=== PATIENT | male | born 1965 | race Hispanic/Latino ===

== ENCOUNTER 2017-05-16 12:53 | Emergency (ER) | payer BC ==
[2017-05-16 13:09] VITALS: BP 148/88; PULSE 87; RESP 18; TEMP 100; O2SAT 98
--- NOTE | 2017-05-16 13:55 | ED PDOC ---
HPI: CCC, URI, Sore Throat Time Seen by Provider: 05/16/17 13:43 Chief Complaint (Nursing): Cough, Cold, Congestion Chief Complaint (Provider): cough, feverish History Per: Patient History/Exam Limitations: no limitations Onset/Duration Of Symptoms: Days Current Symptoms Are (Timing): Still Present Location Of Pain: Diffuse Myalgias. denies: Sinus/es Sick Contacts (Context): None Associated Symptoms: Fever, Chills. denies: Sore Throat, Cough, Sputum Ear Symptoms: Bilateral: None Additional Complaint(s): 51 yo male with HTN presents with cough for 2 days. Pt states he has been having fever on/off for 1 week. PT has not taken anything for fever today. No phlegm Pt states sometimes at night he feels SOB when coughing a lot. Past Medical History Reviewed: Historical Data, Nursing Documentation, Vital Signs Vital Signs: Last Vital Signs Temp 100.0 F H 05/16/17 13:05 Pulse 87 05/16/17 13:05 Resp 18 05/16/17 13:05 BP 148/88 05/16/17 13:05 Pulse Ox 98 05/16/17 13:05 - Medical History PMH: HTN - Surgical History Surgical History: No Surg Hx - Family History Family History: States: No Known Family Hx - Living Arrangements Living Arrangements: With Family - Social History Current smoker - smoking cessation education provided: No Alcohol: None Drugs: Denies - Immunization History Hx Tetanus Toxoid Vaccination: No Hx Influenza Vaccination: No Hx Pneumococcal Vaccination: No - Home Medications Home Medications: Ambulatory Orders Medication Instructions Recorded Acyclovir 800 mg PO QID #20 tablet 11/17/15 Gabapentin 300 mg PO DAILY #0 capsule 11/17/15 predniSONE [predniSONE Tab] 20 mg PO DAILY #12 tab 11/17/15 Albuterol HFA [Ventolin HFA 90 1 puff IH BID PRN #1 unit 05/16/17 mcg/actuation (8 g)] Azithromycin 250 mg PO DAILY #6 tab 05/16/17 - Allergies Allergies/Adverse Reactions: Allergies Allergy/AdvReac Type Severity Reaction Status Date / Time No Known Allergies Allergy Verified 11/17/15 13:01 Review of Systems ROS Statement: Except As Marked, All Systems Reviewed And Found Negative Constitutional: Positive for: Fever. Negative for: Chills Respiratory: Positive for: Cough - ECG O2 Sat by Pulse Oximetry: 98 Disposition - Clinical Impression Clinical Impression: Cough - Patient ED Disposition Is Patient to be Admitted: No Counseled Patient/Family Regarding: Diagnosis, Need For Followup, Rx Given - Disposition Disposition: Routine/Home Disposition Time: 13:53 Condition: GOOD Prescriptions: Albuterol HFA [Ventolin HFA 90 mcg/actuation (8 g)] 1 puff IH BID PRN #1 unit PRN Reason: Cough Azithromycin 250 mg PO DAILY #6 tab Instructions: Upper Respiratory Infection (ED)
== END 2017-05-16 14:01 | disposition home or self-care (01) ==
LOC: H.ER 12:53
DX: I10 Essential (primary) hypertension (principal)